=== PATIENT | male | born 1950 | race Caucasian/White ===

== ENCOUNTER 2019-09-10 07:56 | Inpatient (IN) | payer MEDICARE ==
[2019-09-04 16:46] LABS: ALBUMIN 4.2 G/DL (3.4-5.0); ALBUMIN/GLOBULIN RATIO 1.1 (1.1-1.5); ALKALINE PHOSPHATASE 78 IU/L (46-116); BLOOD UREA NITROGEN 9 MG/DL (7-18); BUN/CREATININE RATIO 6.9 (5.4-32.0); CALCIUM 10.6 MG/DL (8.5-10.1); PRE OP ALT 15 U/L (30-65); PRE OP AST 27 U/L (10-37); PRE OP BILIRUB, TOTAL 0.7 MG/DL (0.0-1.0); PRE OP GLUCOSE 99 MG/DL (70-104); TOTAL CARBON DIOXIDE 30.3 MMOL/L (24-32); TOTAL PROTEIN 7.9 G/DL (6.4-8.2); eGFR 55 ML/MIN
[2019-09-04 16:47] LABS: BASOPHILS % (AUTO) 0.4 % (0-1); EOSINOPHILS # (AUTO) 0.2 X10'3 (0-0.9); EOSINOPHILS % (AUTO) 1.8 % (0-6); LYMPHOCYTES # (AUTO) 2.9 X10'3 (1.1-4.8); LYMPHOCYTES % (AUTO) 27.2 % (21-51); MEAN CORPUSCULAR HEMOGLOBIN 29.6 PG (27.0-31.0); MEAN CORPUSCULAR HGB CONC 33.8 g/dL (33.0-36.5); MEAN CORPUSCULAR VOLUME 87.5 FL (78-98); MEAN PLATELET VOLUME 7.6 FL (7.4-10.4); MONOCYTES # (AUTO) 0.9 X10'3 (0-0.9); MONOCYTES % (AUTO) 8.6 % (2-12); NEUTROPHILS # (AUTO) 6.7 X10'3 (1.8-7.7); PRE OP HEMATOCRIT 48.5 % (42.0-52.0); PRE OP HEMOGLOBIN 16.4 g/dL (14.0-17.9); PRE OP PLATELET COUNT 293 X10'3 (140-440); RED BLOOD COUNT 5.55 X10'6 (4.70-6.10); RED CELL DISTRIBUTION WIDTH 13.9 % (11.5-14.5)
[2019-09-04 17:07] LABS: CHLORIDE 103 MMOL/L (99-107); PRE OP ANION GAP 8 (8-16); PRE OP POTASSIUM 3.7 MMOL/L (3.4-5.1); PRE OP SODIUM 141 MMOL/L (135-145)
--- NOTE | 2019-09-04 17:54 | NUR ---
PT HAD 5" DOG SCRATCH ON SURGICAL ARM. STATED DR BARNES HAD NOT SEEN IT. PHOTO TAKEN PER PT'S OKAY AND SENT TO DR BARNES. NO REPLY OF YET. WILL FOLLOW UP WITH DR BARNES TO BE SURE SURGERY IS STILL A GO.
[2019-09-10] VITALS (23 sets, daily range): BP systolic 129–174; BP diastolic 69–99
[~2019-09-10] VITALS: Ht 182.9 cm; Wt 112.5 kg
[~2019-09-10 07:56] MED LIST: ASPI-611 PO; DIPH25CA83 PO; DULO60CA65 PO; HYDR-3686 PO; KETO120S5 TOP; LOSA100T57 PO; MELA5TAB12 PO; MUPI22OI30 TOP; OMEP-50 PO; PSEU-259 PO; TAPE100T9 PO; TIZA4CAP PO; cefazolin/dext.iso 2gm/50ml 50 ML IV ONE; famotidine 20mg tablet PO ONE; ringers solution, lacted 1,000 ML IV SCH; tranexamic acid inj. 1,100 MG in normal saline 100ml IV soln 100 ML IV ONE; vancomycin 1,500 MG in NS 500ml IV soln IV ONE
[2019-09-10] MEDS ORDERED: fentaNYL/PF 50MCG/1 ML 2ML syringe ONE ×2 (11:19→12:33)
[2019-09-10] MEDS ORDERED: MIDAZolam 5mg/5ml vial ONE (11:20)
[2019-09-10] MEDS ORDERED: ROPIVAcaine 0.5% (5mg/ml) 30ml vial ONE ×3 (11:50→15:39)
[2019-09-10] MEDS ORDERED: ketorolac trometh. 30mg/ml inj. ONE (11:50)
[2019-09-10] MEDS ORDERED: sevoflurane 250ml liquid IH ONE (11:52)
[2019-09-10] MEDS ORDERED: rocuronium 10mg/ml inj IV ONE (13:17)
[2019-09-10] MEDS ORDERED: ondansetron/PF 4mg/2ml inj ONE (13:17)
[2019-09-10] MEDS ORDERED: glycopyrrolate 0.2mg/ml inj ONE (13:17)
[2019-09-10] MEDS ORDERED: hydrALAZINE 20mg/ml inj. IV ONE (13:17)
[2019-09-10] MEDS ORDERED: propofol inj 20 ML IV ONE (13:17)
[2019-09-10] MEDS ORDERED: neostigmine methylsulfate 1 MG/ML 10ml vial ONE (13:17)
[2019-09-10] MEDS ORDERED: ePHEDrine 50MG/ML INJ. ONE (13:17)
[2019-09-10] MEDS ORDERED: LIDOcaine 2% (20mg/ml) 5ml vial ONE (13:17)
[2019-09-10] MEDS ORDERED: dexamethasone sod phosphate 4mg/ml inj. ONE (13:17)
[2019-09-10] MEDS ORDERED: ROPIVAcaine 0.2%/PF PUMP/bolus 550 ML INTERSCALE SCH (13:42)
[2019-09-10] MEDS ORDERED: ringers solution, lacted 1,000 ML IV SCH (13:42)
[2019-09-10] MEDS ORDERED: meperidine/PF 25mg/ml syringe IV PRN ×3 (13:45)
[2019-09-10] MEDS ORDERED: ondansetron/PF 4mg/2ml inj IV PRN ×2 (13:45→14:50)
[2019-09-10] MEDS ORDERED: proCHLORperazine 10 MG/2 ml inj IV PRN (13:45)
[2019-09-10] MEDS ORDERED: ROPIVAcaine 0.2% (10 MG/5 ML) BOLUS INJECTION INTERSCALE PRN (13:45)
[2019-09-10] MEDS ORDERED: morphine 4 MG/ML inj SYRINge IV PRN (13:45)
[2019-09-10] MEDS ORDERED: morphine 2 MG/ML inj. syringe IV PRN (13:45)
--- NOTE | 2019-09-10 14:43 | NUR ---
Received from OR via ortho bed, accompanied by Anesthesiologist Moni and report given by Anesthesiolgist. Mask to 10L and sats 98% and VS stable. Right shoulder dressed and wrapped with sling in place, ON-Q catheter exposed fingers good cap refill. SCDs on no morfin cath and 18G to left forearm LR at 100cc/hr.
[2019-09-10] MEDS: potassium cl 20mEq in 1/2 NS 1,000 ML IV SCH ×2 (14:49→22:49)
[2019-09-10] MEDS ORDERED: oxyCODONE IR 5mg (immed. release) tablet PO PRN (14:50)
[2019-09-10] MEDS ORDERED: magnesium hydroxide 30ml (MOM) UD suspension PO PRN (14:50)
[2019-09-10] MEDS ORDERED: acetaminophen 325mg tablet PO PRN (14:50)
[2019-09-10] MEDS ORDERED: HYDROmorphone inj. 0.5 MG/0.5 ML DISP.SYRIN IV PRN (14:50)
[2019-09-10] MEDS ORDERED: ketoconazole (Nizoral) shampoo TP PRN (14:50)
[2019-09-10] MEDS ORDERED: diphenhydrAMINE 25mg capsule PO PRN ×2 (14:50)
[2019-09-10] MEDS ORDERED: TAPENTADOL HCL PO PRN (14:50)
[2019-09-10] MEDS ORDERED: bisacodyl 10mg suppository rectal RC PRN (14:50)
[2019-09-10] MEDS ORDERED: mupirocin 2% ointment 22GM NS PRN (14:50)
[2019-09-10] MEDS ORDERED: meperidine/PF 25mg/ml syringe ONE (15:03)
[2019-09-10] MEDS ORDERED: morphine 4 MG/ML inj SYRINge ONE (15:07)
[2019-09-10] MEDS ORDERED: acetaminophen 1,000mg/100ml IV 100 ML IV ONE (15:12)
[2019-09-10] MEDS ORDERED: HYDROmorphone inj. 0.5 MG/0.5 ML DISP.SYRIN IV ONE (15:55)
[2019-09-10] MEDS ORDERED: tranexamic acid inj. 1,100 MG in normal saline 100ml IV soln 100 ML IV ONE (16:00)
[2019-09-10] MEDS: ceFAZolin 1GM/D5W- ADD-VANTAGE 50 ML IV SCH ×2 (16:00→23:27)
--- NOTE | 2019-09-10 16:00 | NUR ---
Despite multiple different doses of IV pain medicine patient still states his pain is 10/10 and is writhing in discomfort. MD at bedside and placing new ISB catheter, old one removed. Pt states pain much improved down to 5 or 6/10. Tolerable at this time will continue to monitor.
--- NOTE | 2019-09-10 17:03 | NUR ---
Report called to receiving nurse. Transferred via ortho bed. Belongings sent with patient. Special Issues communicated to receiving nurse WALKER Ly on the phone. Pt states pain muc more tolerable at 5/10 since new ISB catheter placed. BLL call light within reach and VS stbale. Pt aware of transfer to room 344A and chart at bedside.
--- NOTE | 2019-09-10 18:18 | NUR ---
REPORTED OFF TO [facility]
--- NOTE | 2019-09-10 18:30 | NUR ---
Patient in room [facility]. I have received report from AMOR and had the opportunity to ask questions and assume patient care.
[2019-09-10] MEDS ORDERED: acetaminophen 1,000mg/100ml IV 100 ML IV SCH (20:00)
[2019-09-10] MEDS ORDERED: vancomycin/NS 1 GM ADD-VANTAGE 250 ML IV SCH (20:00)
[2019-09-10] MEDS: acetaminophen 325mg tablet PO SCH (20:49)
[2019-09-10] MEDS: HYDROmorphone 1 mg/ml syringe IV PRN (20:50)
[2019-09-10] MEDS ORDERED: Melatonin 3mg tablet PO SCH (21:00)
[2019-09-10] MEDS ORDERED: sennosides 8.6mg tablet PO SCH (21:00)
[2019-09-10] MEDS ORDERED: diphenhydrAMINE 25mg capsule PO SCH (21:00)
[2019-09-10] MEDS ORDERED: hydrOXYzine 25 MG tablet PO SCH (21:00)
[2019-09-11] MEDS: acetaminophen 325mg tablet PO SCH ×2 (02:06→07:25)
[2019-09-11 03:52] VITALS: BP 140/81
[2019-09-11] MEDS: HYDROmorphone 1 mg/ml syringe IV PRN (04:27)
[2019-09-11] MEDS: potassium cl 20mEq in 1/2 NS 1,000 ML IV SCH (04:34)
[2019-09-11 05:46] LABS: BASOPHILS # (AUTO) 0.1 X10'3 (0-0.2); BASOPHILS % (AUTO) 0.4 % (0-1); EOSINOPHILS % (AUTO) 0 % (0-6); HEMATOCRIT 44.5 % (42.0-52.0); HEMOGLOBIN 14.8 g/dl (14.0-17.9); LYMPHOCYTES # (AUTO) 1.9 X10'3 (1.1-4.8); LYMPHOCYTES % (AUTO) 13.6 % (21-51); MEAN CORPUSCULAR HEMOGLOBIN 29.3 PG (27.0-31.0); MEAN CORPUSCULAR HGB CONC 33.3 g/dL (33.0-36.5); MEAN CORPUSCULAR VOLUME 87.8 FL (78-98); MEAN PLATELET VOLUME 7.7 FL (7.4-10.4); MONOCYTES # (AUTO) 1.4 X10'3 (0-0.9); MONOCYTES % (AUTO) 9.7 % (2-12); NEUTROPHILS # (AUTO) 10.9 X10'3 (1.8-7.7); NEUTROPHILS % (AUTO) 76.3 % (42-75); PLATELET COUNT 245 X10'3 (140-440); RED BLOOD COUNT 5.07 X10'6 (4.70-6.10); RED CELL DISTRIBUTION WIDTH 14.3 % (11.5-14.5); WHITE BLOOD COUNT 14.3 X10'3 (4.5-11.0)
[2019-09-11 05:48] LABS: ANION GAP 10 (8-16); CHLORIDE 107 MMOL/L (99-107); POTASSIUM 4.3 MMOL/L (3.5-5.1); SODIUM 141 MMOL/L (135-145); TOTAL CARBON DIOXIDE 23.8 MMOL/L (24-32)
[2019-09-11 06:00] VITALS: BP 130/75
--- NOTE | 2019-09-11 06:05 | NUR ---
received report from ines garcia
--- NOTE | 2019-09-11 06:06 | NUR ---
Problems reprioritized. Patient report given, questions answered & plan of care reviewed with
[2019-09-11 07:04] VITALS: BP 143/101
[2019-09-11] MEDS: oxyCODONE IR 5mg (immed. release) tablet PO PRN ×2 (07:27→11:13)
[2019-09-11] MEDS ORDERED: pantoprazole 40mg Tablet.DR PO SCH (08:00)
[2019-09-11] MEDS ORDERED: tizanidine 4mg tablet PO SCH (08:00)
[2019-09-11] MEDS ORDERED: pseudoephedrine 30mg tablet PO SCH (08:00)
[2019-09-11] MEDS ORDERED: duloxetine 30mg CAPSULE.DR PO SCH (08:00)
[2019-09-11] MEDS ORDERED: losartan 50mg tablet PO SCH (08:00)
[2019-09-11] MEDS ORDERED: aspirin 325mg tablet PO SCH (08:30)
--- NOTE | 2019-09-11 12:41 | NUR ---
pt d/c with instructions understanding of instructions and w/all belongings accompanied by nursing staff in wheelchair to private vehicle to go home and f/u w/surgeon pt given 2 powder packs pt to make f/u appointment w/surgeon in 2 weeks
[2019-09-12] MEDS ORDERED: acetaminophen 325mg tablet PO PRN (14:50)
--- NOTE | 2019-09-13 14:22 | NUR ---
Case Management DC follow up: spoke to pt via telephone. S/P: R TSA Reports:"Feeling cautiously, optimistic". Denies: acute cp, SOB, resp distress, vertigo, syncope,weakness, blurry vision, N/V, LATHAM, emergent general pain, abd tenderness/distension. fever. Denies s/s infection to surg site, R arm. Verbalizes understanding of s/s that warrant 9-11/ER visit for evaluation. Verbalizes understanding of new Rx/pain meds and why prescribed, resumes current Rx/taking as ordered, no ase r/t polypharmacy. pt asked for refill of pain medication, advised to contact PCP re current Rx. Acknowledges need to schedule/keep follow up appts w/ PCP/GREG Child. Dr Bay follow up in 2 weeks. pt agrees to contact and confirm appt date/time. Needs met, questions answered at DC, no further questions at this time.
== END 2019-09-11 11:57 | disposition home or self-care (01) | DRG 483 ==
LOC: PAS IN 07:56 → UNDOADMIN 07:56 → EDSTATUS 10:15 → PAS IN 14:49 → SUR 3N 15:45 → UNDODISIN 09-11 11:57
PROVIDERS: ADMIT Orthopaedic Surgery; ATTEND Orthopaedic Surgery
PROC: 0LS30ZZ Reposition Right Upper Arm Tendon, Open Approach (ICD-10-PCS; 2019-09-10)
PROC: 3E0T3BZ Introduction of Anesthetic Agent into Peripheral Nerves and Plexi, Percutaneous Approach (ICD-10-PCS; 2019-09-10)
PROC: 0RRJ00Z Replacement of Right Shoulder Joint with Reverse Ball and Socket Synthetic Substitute, Open Approach (ICD-10-PCS; principal; 2019-09-10 11:52)
DX: M19.011 Primary osteoarthritis, right shoulder (principal); M75.121 Complete rotator cuff tear or rupture of right shoulder, not specified as traumatic; M75.21 Bicipital tendinitis, right shoulder; I10 Essential (primary) hypertension; F32.9 Major depressive disorder, single episode, unspecified; M65.811 Other synovitis and tenosynovitis, right shoulder; M75.41 Impingement syndrome of right shoulder; I73.9 Peripheral vascular disease, unspecified; Z79.899 Other long term (current) drug therapy; Z79.82 Long term (current) use of aspirin
CPT/HCPCS: 36415; 80051; 80053; 82948; 85025; 87081; 97110; 97116; 97162; 97530; A4565; A4618; A6402; A7000; C1776; G0378; J0131; J0360; J0690; J1100; J1170; J1885; J2001; J2175; J2250; J2270; J2405; J2704; J2710; J2795; J3010; J3370; J3480; J3490; J7040; J7120; Q0163; Q0177